=== PATIENT | female | born 1975 | race Caucasian/White ===

== ENCOUNTER 2019-05-16 06:37 | Day surgery (SDC) | payer BC ==
[~2019-05-16] VITALS: Ht 175.3 cm; Wt 89.2 kg
[~2019-05-16 06:37] MED LIST: B-1250 MCG PO; BCP TD; GABAPENTIN100 MG PO; MECLIZINE25 MG PO; MULTIVITAMIN1 CTB PO; TREXIMET
[2019-05-16] MEDS ORDERED: FLEXERIL 1010 MG/TAB PO (06:55)
[2019-05-16] MEDS ORDERED: LO LOESTRIN FE1 TAB PO (06:55)
[2019-05-16] MEDS ORDERED: CRESTOR 10MG10 MG PO (06:56)
[2019-05-16] MEDS ORDERED: IMITREX100 MG PO (06:56)
[2019-05-16] MEDS ORDERED: LEXAPRO20 MG PO (06:56)
[2019-05-16] MEDS ORDERED: WELLBUTRIN XL300 M1 PO (06:57)
[2019-05-16] MEDS ORDERED: CORGARD20 MG PO (06:57)
[2019-05-16 07:00] VITALS: BP 113/67; PULSE 57; TEMP 97.4
[2019-05-16 08:15] VITALS: BP 101/66; PULSE 62; TEMP 97.1
--- NOTE | 2019-05-16 08:15 | NUR ---
Pt to [facility] via cart from [facility]. Pt drowsy, but awake. Denies pain or nausea. Pt ambulates to recliner with stand by assistance x2. VSS. in room. Muffin and soda given per pt request. Will continue to monitor. Call light within reach.
[2019-05-16 08:30] VITALS: BP 108/68; PULSE 58
--- NOTE | 2019-05-16 08:30 | NUR ---
Pt continues to rest. Denies needs. Tolerting food and fluids without diffiuclties. Call light within reach.
[2019-05-16 08:45] VITALS: BP 92/59; PULSE 53
--- NOTE | 2019-05-16 08:45 | NUR ---
Discharge instructions reviewed. Pt voices understanding. IV site discontinued with all parts intact. Pt up to dress.
--- NOTE | 2019-05-16 09:00 | NUR ---
Pt escorted to private car via wheel chair. Pt accompanied home by her .
== END 2019-05-16 09:00 | disposition home or self-care (01) ==
LOC: SDCO 06:37
DX: K92.1 Melena (principal); K64.0 First degree hemorrhoids; E78.00 Pure hypercholesterolemia, unspecified; E66.9 Obesity, unspecified; Z68.30 Body mass index [BMI] 30.0-30.9, adult
CPT/HCPCS: J2250; J3010; J7030

== ENCOUNTER → 2021-03-16 | Outpatient (CLI) | payer BC ==
[~2021-03-16] MED LIST changes: +CORGARD20 MG PO; +CRESTOR 10MG10 MG PO; +FLEXERIL 1010 MG/TAB PO; +IMITREX100 MG PO; +LEXAPRO20 MG PO; +LO LOESTRIN FE1 TAB PO; +WELLBUTRIN XL300 M1 PO
== END ==
LOC: MC.RAD 08:07
DX: Z12.31 Encounter for screening mammogram for malignant neoplasm of breast (principal)